=== PATIENT | female | born 1990 | race Caucasian/White ===

== ENCOUNTER 2017-11-19 00:01 | Emergency (ER) | payer OTHER ==
[2017-11-19 00:06] VITALS: BP 119/91
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
== END 2017-11-19 00:54 | disposition home or self-care (01) ==
DX: H01.011 Ulcerative blepharitis right upper eyelid (principal)